=== PATIENT | male | born 1990 | race Caucasian/White ===

== ENCOUNTER 2016-12-21 20:36 | Emergency (ER) | payer MEDICAID ==
[~2016-12-21 20:36] MED LIST: ACET300T2 PO; ALBU0.08 NEB; CEFT500T3 PO; IPRA17I INH; LACTCHW3 CHEW; MUCI600T PO; NORC5TAB PO; PRED10PA PO; VENTAER INH
[2016-12-21 20:37] VITALS: BP 141/76; PULSE 61; RESP 14; TEMP 98.7; O2SAT 96
== END 2016-12-21 21:57 | disposition left against medical advice (07) ==
LOC: NED 20:36
DX: R07.9 Chest pain, unspecified (principal)
CPT/HCPCS: 99281